=== PATIENT | female | born 1960 | race Caucasian/White ===

== ENCOUNTER → 2016-07-14 | Outpatient (CLI) | payer BC ==
[~2016-07-14] MED LIST: ASPIRIN325 MG PO; CELEBREX200 MG PO; DILAUDID 2MG(HYD2 MG PO; EFFEXOR XR37.5 MG PO; HYDRODIURIL12.5 MG PO; LASIX20 MG PO; LYRICA 75MG CAP75 MG PO; NORCO 5-325 MG1 TAB PO; NORVASC2.5 MG PO; PROTONIX40 MG PO; ROXICODONE 5MG (5 MG PO; THERAGRAN-M1 TAB PO; TYLENOL325 MG PO; VALIUM5 MG PO
== END | disposition disaster alternative care site (69) ==
LOC: GBCOE 15:52
DX: Z12.31 Encounter for screening mammogram for malignant neoplasm of breast (principal); Z85.3 Personal history of malignant neoplasm of breast
CPT/HCPCS: G0202